=== PATIENT | female | born 1980 | race African-American/Black ===

== ENCOUNTER 2016-12-13 07:35 | Inpatient (IN) | payer MEDICAID ==
[2016-12-13] MEDS ORDERED: Acetaminophen 500 MG TAB ONE (07:59)
--- NOTE | 2016-12-13 08:03 | ED Physician Chart ---
Chief Complaint/HPI - Patient Information Date Seen:: 12/13/16 Time Seen:: 07:40 Chief Complaint:: leg pain History of Present Illness:: Patient has had cellulites both legs for 1 1/2 years. Pain has increased for the last 3 days. Was in [facility] in [place] 2 days ago where a fever was recorded. Allergies:: Allergies Allergy/AdvReac Type Severity Reaction Status Date / Time No Known Allergies Allergy Verified 12/13/16 07:56 Vitals:: Vital Signs - 8 hr 12/13/16 07:51 Temp 97.7 F HR 108 RR 16 BP 134/74 O2 Sat % 100 Historian:: Patient Review:: Nurse's Note Reviewed Review of Systems - Review of Systems General/Constitutional: Fever Skin: Skin lesions Head: No headache Eyes: No loss of vision ENT: No earache Neck: No neck pain Cardio Vascular: No chest pain Pulmonary: No SOB, No cough GI: No nausea, No vomiting, No diarrhea G/U: No dysuria Musculoskeletal: Muscle pain Endocrine: No polyuria, No polydipsia Psychiatric: No prior psych history Allergic/Immuno: No urticaria Neurological: No syncope, No focal symptoms Past Medical History - Past Medical History Past Medical History: DM, Other ("borderline diabetes") Family History: Diabetes Melitus Social History: Smoker, No Alcohol, Other (smokes cigarets about two days a week ) Surgical History: Psychiatricy History: None Medication: None Family Medical History - Family Member Mother Ethnicity: Non- Living Status: Unknown Physical Exam - Physical Examination General/Constitutional: Well-developed, well-nourished, Alert, No distress Head: Atraumatic Eyes: Lids, conjuctiva normal Other Skin comments:: swelling and 2/4 pitting edema lower legs; 7x3 cm superficial ulcer medial left lower leg just proximal to ankle ENMT: External ears, nose nl Neck: No nuchal rigidity Respiratory: Nl effort/Exclusion, Clear to Auscultation Cardio Vascular: RRR, No murmur, gallop, rubs GI: No tenderness/rebounding/guarding, No organomegaly, No hernia : No CVA tenderness Extremities: No tenderness or effusion Neuro/Psych: Alert/oriented, No focal deficits Misc: Normal back ED Septic Shock - . Is Septic Shock (SBP<90, OR Lactate>4 mmol\\L) present?: No - <6hrs of presentation: Vital Signs: Vital Signs - 8 hr 12/13/16 07:51 Temp 97.7 F HR 108 RR 16 BP 134/74 O2 Sat % 100 Reassessment (Disposition) - Reassessment Reassessment Condition:: Unchanged - Diagnosis Diagnosis:: cellulitis both lower legs; abscess left lower leg. - Patient Disposition Admitted to:: Med/Surg Spoke to:: Tj Mchugh Admitting Medical Physician:: Tj Mchugh Condition at Disposition:: Stable, Unchanged
[2016-12-13 08:41] LABS: % BASOPHILS 0.8 % (0.0-2.0); % EOSINOPHILS 2.1 % (0.0-5.0); % LYMPHOCYTES 38.6 % (20.0-50.0); % MONOCYTES 9.8 % (2.0-10.0); % NEUTROPHILS 48.7 % (40.0-80.0); HEMATOCRIT 32.6 % (35.0-45.0); HEMOGLOBIN 10.5 gm/dL (11.7-15.5); MEAN CELL VOLUME 86.7 fl (81-100); MEAN CORPUSCULAR HGB CONC 32.3 pg (28.0-36.0); MEAN PLATELET VOLUME 7.5 fl; PLATELET COUNT 272 Th/cmm (150-400); RED BLOOD COUNT 3.76 Mil/cmm (3.80-5.10); RED CELL DISTRIBUTION WIDTH 19.3 % (11.5-20.0)
[2016-12-13 09:16] LABS: ALB/GLOB RATIO 0.7 (1.0-1.8); ALKALINE PHOSPHATASE 79 U/L (34-104); ANION GAP 9.3 (7.0-16.0); BILIRUBIN,TOTAL 0.4 mg/dL (0.3-1.0); BUN - UREA NITROGEN 15 mg/dL (7-25); CALCIUM SERUM 9.4 mg/dL (8.6-10.3); CARBON DIOXIDE 27.1 mEq/L (21.0-31.0); CHLORIDE 101 mEq/L (98-107); CREATININE - SERUM 0.6 mg/dL (0.6-1.2); GLUCOSE 91 mg/dL (70-105); POTASSIUM SERUM 4.4 mEq/L (3.5-5.1); SGOT 34 U/L (13-39); SGPT/ALT 23 U/L (7-52); SODIUM SERUM 133 mEq/L (136-145)
[2016-12-13 10:21] LABS: URINE BILIRUBIN NEGATIVE (NEGATIVE); URINE BLOOD NEGATIVE (NEGATIVE); URINE COLOR YELLOW; URINE GLUCOSE (UA) NEGATIVE (NEGATIVE); URINE KETONE NEGATIVE (NEGATIVE); URINE PROTEIN 30 mg/dL (NEGATIVE)
[2016-12-13 10:22] LABS: URINE UROBILINOGEN 0.2 E.U./dL (0.2 - 1.0)
[2016-12-13 10:25] LABS: URINE BACTERIA FEW /hpf (NONE SEEN); URINE EPITHELIAL CELLS MODERATE /lpf (FEW); URINE RBC 0-2 /hpf (0-5)
--- NOTE | 2016-12-13 10:56 | Diagnostic Imaging Report ---
Left tibia fibula 2 views Indication: Pain, rule out Osteomyelitis Comparison: none Findings: No evidence of an acute fracture. Generalized soft tissue prominence is noted. No osseous erosions identified. Moderate distal Achilles and plantar calcaneal spurs are noted. Impression: No x-ray evidence of osteomyelitis, however, if there is continued clinical concern for osteomyelitis, MRI or nuclear bone scan may be obtained for further assessment Generalized soft tissue prominence. Please correlate clinically for possible cellulitis. In the setting of trauma, if clinical symptoms persist and there is continued concern for an occult fracture, follow up exams in 5-7 days is suggested.
[2016-12-13] MEDS ORDERED: Hydrocodone/APAP 5mg/325mg Tab PO PRN (12:34)
--- NOTE | 2016-12-13 13:05 | Consultation ---
Consult Note - Consult Note Service Date: 12/13/16 Referring Physician: Tj Mchugh Consult Note: PHYSICIAN Consultation Note: Date of Admission: 12/13/16 Purpose of Consultation: cellulitis of leg, not improving for last 2 weeks. Chief Complaint: Leg swelling and pain. History of Present Illness: Patient ALEENA DICKEY was admitted to [facility] Medical[facility] with CELLULITIS OF BILATERAL EXTREMITIES. Patient is 36 Y female with history of lymphedema of both legs for more than 3 years, presented to the ED for swelling leg pains and worsening of the swelling for last two weeks with non healing wound in her left leg. She hit the leg and developed her left leg ulcer. she went to the the [facility] last week and had 100 degree F recorded in the ED (as per the patient). Currently, she is afebrile. On initial evaluation, her temperature was 97.7 degree F and WBC Count was 6,000. As she was found to have cellulitis, DENICE bhatia was called for antibiotic management. PMH: Lymphedema, borderline DM2. Allergies Allergy/AdvReac Type Severity Reaction Status Date / Time No Known Allergies Allergy Verified 12/13/16 07:56 Vital Signs Temp 99.3 F 12/13/16 12:06 Pulse 95 12/13/16 12:06 Resp 18 12/13/16 12:06 BP 175/77 12/13/16 12:06 Pulse Ox 99 12/13/16 12:06 Current Medications Generic Name Dose Route Start Last Admin Trade Name Freq PRN Reason Stop Dose Admin Acetaminophen 650 mg 12/13/16 12:47 Tylenol PO 02/11/17 12:46 Q4HR PRN Pain or Fever >101 Acetaminophen/Hydrocodone Bitart 1 tab 12/13/16 12:34 Ringold 5mg/325mg PO 02/11/17 12:33 Q6H PRN Pain (Severe) Miscellaneous 1 ea 12/13/16 12:45 Vancomycin Iv Per Pharmacy [facility] 02/11/17 12:44 PRN ZACKARY Ondansetron HCl 4 mg 12/13/16 12:35 Zofran Odt PO 02/11/17 12:34 Q6H PRN Nausea / Vomiting Review of Systems: A 12 point ROS was reviewed with the pertinent positive and negatives noted in the HPI. Physical Exam: General: No Acute Distress HEENT: Head is normocephalic, atraumatic on inspection. Oral cavity mois, pink tongue. Eyes: EOMI Bilaterally, PERRLA Bilaterally, Cardio: +S1/S2 Auscultated, RRR, no murmurs/rubs/gallops noted Respiratory: Clear to Auscultate Bilaterally Abdominal: Soft, Nondistended, Nontender to palpation x 4 quadrants Extremities: Swelling of the leg with mild redness and sloughing of the skin b/ l. there is two bleeding ulcer laterally. the legs, ankles and feet are very swollen and has sloughing of the skin. Neurological: Alert and Oriented x3, Cranial Nerves II-XII intact bilaterally, Gait Steady, No Focal Deficits noted. Assessment/Plan: 1. Cellulitis. 2. Borderline DM2. Recommendations: Will start vanco IV and follow up sepsis w/u. Wound care, may need moisturizer. Thank you, Dr Mchugh for involving me inctaking care of this patient. Signed, Matheus Gutierrez M.D. [id number]
--- NOTE | 2016-12-13 15:48 | Diagnostic Imaging Report ---
Bilateral lower extremity DVT study HISTORY: Pain COMPARISON: None Technique: Longitudinal and transverse sonographic images of the bilateral lower extremity veins were obtained with doppler analysis. FINDINGS: Exam is limited due to body habitus. The bilateral peroneal veins are not visualized. There is patency of the bilateral common femoral, superficial femoral, popliteal and posterior tibial veins. Compressibility, augmentation and phasicity demonstrated with no evidence of thrombus formation. IMPRESSION: Nonvisualization of the bilateral peroneal veins. Otherwise no evidence of DVT within the bilateral lower extremity venous system.
--- NOTE | 2016-12-13 15:51 | Diagnostic Imaging Report ---
Bilateral lower extremity arterial study HISTORY: Peripheral vascular disease COMPARISON: None Technique: Longitudinal and transverse sonographic images of the bilateral lower extremity arteries were obtained with doppler analysis. FINDINGS: Exam of the right side demonstrates generalized atherosclerotic vascular disease with primarily biphasic and monophasic flow noted. Increased velocities are seen throughout the right lower extremity greatest along the right superficial femoral artery at the mid aspect and 181 cm/second. Exam of the left side demonstrates generalized atherosclerotic vascular disease with biphasic and monophasic waveforms and diffuse increased velocity greatest of the left common femoral artery at 209 cm/second. Right DAMIEN is 1 Left DAMIEN is 1.2 IMPRESSION: Generalized atherosclerosis with diffuse loss of the triphasic flow bilaterally. Increased velocities are also noted which may be related to vessel narrowing. Clinical correlation is recommended. No sonographic evidence of occlusion. If indicated follow-up CT angiography of the lower extremities may be obtained.
--- NOTE | 2016-12-13 16:13 | Admit Criteria Form ---
Admit Criteria Forms - Admit Criteria Diagnosis: CELLULITIS Clinical Indications for Admission to Inpatient Care (Place 'X' for any and all applicable criteria): Admission is indicated for ANY ONE of the following(1)(2)(3)(4)(5): [ ]I. Limb-threatening infection [ ]II. High-risk comorbid condition as indicated by ANY ONE of the following: [ ]a) Uncontrolled diabetes (eg, HbA1c greater than 10% (0.1)) [ ]b) Cirrhosis [ ]c) Neutropenia [ ]d) Asplenia [ ]e) Immunosuppression [ ]f) Symptomatic heart failure [ ]III. Failure of outpatient therapy as indicated by ALL of the following: [ ]a) Progression or no improvement after adequate trial (minimum of 48 hours, with longer period for stable lower extremity infection) [ ]b) Adequate antibiotic regimen as indicated by use of ANY ONE of the following: [ ]i) First-generation cephalosporin (e.g., cephalexin) [ ]ii) Antistaphylococcal penicillin (e.g., dicloxacillin) [ ]iii) Penicillin-allergic patient regimen (clindamycin, extended-spectrum fluoroquinolone, or doxycycline) [ ]iv) Resistant organism (eg, methicillin-resistant Staphylococcus aureus) regimen (6) [ ]c) Outpatient intravenous therapy regimen is not appropriate due to ANY ONE of the following. (7)(8)(9)(10): [ ]i) It was tried and was not successful (eg, progression of infection). [ ]ii) It is not available or cannot be arranged in a clinically appropriate time frame (e.g., the next day). [ ]iii) Clinical presentation (eg, acuity of infection, rapidity of progression, confirmed or suspected bacteremia) is judged to require ALL of the following: [ ]1) Immediate initiation of intravenous therapy ( eg, cannot wait for next day) [ ]2) Intensity of patient monitoring and observation (eg, vital sign measurement, checks for infection progression) that cannot be provided at other than inpatient level of care [ ]IV. Mental status changes [ ]V. Bacteremia [ ]. Hemodynamic instability [ ]VII. Suspected necrotizing soft tissue infection (e.g., gas in tissue)(11)( 12) [ ]VIII. Orbital infection (13)(14) [ ]IX. Associated surgical procedure (e.g., abscess drainage, debridement) not amenable to outpatient, emergency department, or observation care [ ]X. Cutaneous gangrene [ ]XI. High fever (temperature greater than 39.5 degrees C (103.1 degrees F) (oral)) not responsive to outpatient, emergency department, or observation care therapy [ X]XIII. Inpatient admission required rather than observation care (Also use Cellulitis: Observation Care as appropriate) because of ANY ONE of the following : [ ]a) Periorbital or perineal infection that is severe or worsening [ ]b) Severe pain requiring acute inpatient management [ ]c) IV fluid to replace significant ongoing (e.g., for over 24 hours) losses (greater than 3L/m2 per day) [ ]d) Compartment syndrome monitoring (17) [ ]e) Strict or protective (eg, laminar flow) isolation [ ]f) Urgent debridement or skin grafting [ ]g) Bone or joint debridement [ ]h) Immediate inpatient surgery [ X]i) Other condition, treatment or monitoring requiring inpatient admission Extended stay beyond goal length of stay may be needed for (1)(18): [ ]a) Necrotizing soft tissue infection or fasciitis [ ]b) Gram-negative infection [ ]c) Methicillin-resistant Staphylococcal aureus (MRSA) infection [ ]d) Peripheral venous insufficiency with cellulitis [ ]e) Extensive edema [ ]f) Sepsis or continued Hemodynamic instability [ ]g) Continued high fever or mental status change [ ]h) Bacteremia [ ]i) Active serious comorbid conditions ( eg, heart failure, renal insufficiency) The original [facility] Versus content created by [email or web address] [employer] has been revised. The portions of the content which have been revised are identified through the use of italic text or in bold, and [facility] has neither reviewed nor approved the modified material. All other unmodified content is copyright [facility] Please see references footnoted in the original [facility] [employer] [facility] edition 2016 Admit Criteria Met?: Yes
[2016-12-13] MEDS: Morphine Sulfate 2 mg/mL 1mL Syr IVP PRN ×2 (18:08→23:48)
[2016-12-13] MEDS: Vancomycin HCl 1.5 GM in Sodium Chloride 0.9% 500 ML IV SCH ×2 (18:13→22:49)
--- NOTE | 2016-12-13 22:24 | History & Physical ---
CHIEF COMPLAINT: Bilateral leg swelling, redness and open wound. HISTORY OF PRESENT ILLNESS: This is a 36-year-old female with underlying history of obesity, borderline diabetes, was evaluated in the Emergency Room at [facility] for bilateral leg pain, swelling and open wound. The patient was diagnosed with bilateral lower extremity cellulitis and was admitted for evaluation and treatment. The patient said that her symptoms has been going on for the past several days. She went to [facility] and was prescribed oral antibiotics, but the antibiotic did not help and her symptoms got worse. The patient said that she does not have any regular primary care physician. Normally, when she has any medical problems, she goes to the Emergency Room. Denies any complaints or concerns. PAST MEDICAL HISTORY: Borderline diabetes, otherwise denies. PAST SURGICAL HISTORY: C-sections in the past. FAMILY HISTORY: Noncontributory. SOCIAL HISTORY: Lives at home. Denies any alcohol or street drug use, positive for daily cigarette smoking. REVIEW OF SYSTEMS: Denies any fever, no chills, no nausea, no vomiting, no abdominal pain, no headache, no trouble with vision or speech. Denies any chest pain. No shortness of breath. No dizziness. No palpitations. Denies any urinary symptoms. Complaints of bilateral lower extremity pain. PHYSICAL EXAMINATION: VITAL SIGNS: Temperature 98.1, pulse 112, respiration 18, blood pressure is 124/70, Pain 7/10. GENERAL APPEARANCE: The patient does not seem to be in distress. CARDIOVASCULAR: S1, S2 normal. LUNGS: CTA bilaterally. ABDOMEN: Soft, nontender. NEUROLOGIC: The patient is awake. Moves all, no focal deficits noted. EXTREMITIES: Bilaterally legs +2 pitting edema noted, open wound and slough noted. Bilateral leg swelling and redness noted. LABORATORY DATA: WBC is 6.0, hemoglobin 10.5, hematocrit 32.6, platelets 270. Sodium 133, potassium 4.4, BUN 15, creatinine 0.6, ALT 23, globulin 5.1. Bilateral lower extremity Doppler negative for any DVT. X ray leg negative for acute osteomyelitis. ASSESSMENT: 1. Bilateral lower extremity cellulitis. 2. Borderline diabetes. 3. Morbid obesity. PLAN: The patient admitted to Med/Surg floor, started on IV vancomycin. Wound care team was consulted, ID was consulted. The patient was initially given [place] for pain control, but patient reported [place] is not helping her pain. [place] was discontinued and morphine was started. We will follow up on the further ID recommendations. Patient's condition and plan discussed with the staff. JOB# [id number] MTDD
[2016-12-14] MEDS: Morphine Sulfate 2 mg/mL 1mL Syr IVP PRN ×4 (05:50→22:36)
[2016-12-14] MEDS: Vancomycin HCl 1.5 GM in Sodium Chloride 0.9% 500 ML IV SCH (07:06)
[2016-12-14] MEDS: Therahoney Gel 42.5gm Tube TP SCH (10:49)
--- NOTE | 2016-12-14 11:52 | Diagnostic Imaging Report ---
Portable chest x-ray HISTORY: Shortness of breath, vascular catheter placement The heart size is normal. No focal pulmonary processes. No hilar or mediastinal abnormalities. A right-sided vascular catheter tip is in the region of the superior vena cava. IMPRESSION: 1. No acute focal pulmonary processes 2. Vascular catheter placement as noted above
[2016-12-14] MEDS ORDERED: Pneumococcal Vaccine 0.5 mL Vial IM ONE (12:00)
[2016-12-14] MEDS ORDERED: Influenza Vaccine 0.5 mL Syr IM ONE (12:00)
--- NOTE | 2016-12-14 12:12 | Infectious Disease Prog Note ---
Infectious Disease Subjective - Review of Systems Service Date: 12/14/16 Subjective: No new change, no fever. Infectious Disease Objective - Results Result Diagrams: 12/13/16 08:30 12/13/16 08:30 Recent Labs: Laboratory Last Values WBC 6.0 Th/cmm (4.8-10.8) 12/13/16 08:30 RBC 3.76 Mil/cmm (3.80-5.10) L 12/13/16 08:30 Hgb 10.5 gm/dL (11.7-15.5) L 12/13/16 08:30 Hct 32.6 % (35.0-45.0) L 12/13/16 08:30 MCV 86.7 fl (81-100) 12/13/16 08:30 MCH 28.0 pg (27.0-31.0) 12/13/16 08:30 MCHC Differential 32.3 pg (28.0-36.0) 12/13/16 08:30 RDW 19.3 % (11.5-20.0) 12/13/16 08:30 Plt Count 272 Th/cmm (150-400) 12/13/16 08:30 MPV 7.5 fl 12/13/16 08:30 Neutrophils % 48.7 % (40.0-80.0) 12/13/16 08:30 Lymphocytes % 38.6 % (20.0-50.0) 12/13/16 08:30 Monocytes % 9.8 % (2.0-10.0) 12/13/16 08:30 Eosinophils % 2.1 % (0.0-5.0) 12/13/16 08:30 Basophils % 0.8 % (0.0-2.0) 12/13/16 08:30 Sodium 133 mEq/L (136-145) L 12/13/16 08:30 Potassium 4.4 mEq/L (3.5-5.1) 12/13/16 08:30 Chloride 101 mEq/L (98-107) 12/13/16 08:30 Carbon Dioxide 27.1 mEq/L (21.0-31.0) 12/13/16 08:30 Anion Gap 9.3 (7.0-16.0) 12/13/16 08:30 BUN 15 mg/dL (7-25) 12/13/16 08:30 Creatinine 0.6 mg/dL (0.6-1.2) 12/13/16 08:30 Est GFR ( Amer) > 60.0 ml/min (>90) 12/13/16 08:30 Est GFR (Non-Af Amer) > 60.0 ml/min 12/13/16 08:30 BUN/Creatinine Ratio 25.0 12/13/16 08:30 Glucose 91 mg/dL (70-105) 12/13/16 08:30 Calcium 9.4 mg/dL (8.6-10.3) 12/13/16 08:30 Total Bilirubin 0.4 mg/dL (0.3-1.0) 12/13/16 08:30 AST 34 U/L (13-39) 12/13/16 08:30 ALT 23 U/L (7-52) 12/13/16 08:30 Alkaline Phosphatase 79 U/L (34-104) 12/13/16 08:30 Total Protein 8.5 gm/dL (6.0-8.3) H 12/13/16 08:30 Albumin 3.4 gm/dL (3.7-5.3) L 12/13/16 08:30 Globulin 5.1 gm/dL 12/13/16 08:30 Albumin/Globulin Ratio 0.7 (1.0-1.8) L 12/13/16 08:30 Urine Source MIDSTREAM 12/13/16 10:00 Urine Color YELLOW 12/13/16 10:00 Urine Clarity SL. CLOUDY (CLEAR) 12/13/16 10:00 Urine pH 6.0 12/13/16 10:00 Ur Specific [place] (1.005-1.030) 12/13/16 10:00 Urine Protein 30 mg/dL (NEGATIVE) H 12/13/16 10:00 Urine Glucose (UA) NEGATIVE mg/dL (NEGATIVE) 12/13/16 10:00 Urine Ketones NEGATIVE mg/dL (NEGATIVE) 12/13/16 10:00 Urine Blood NEGATIVE (NEGATIVE) 12/13/16 10:00 Urine Nitrate NEGATIVE (NEGATIVE) 12/13/16 10:00 Urine Bilirubin NEGATIVE (NEGATIVE) 12/13/16 10:00 Urine Urobilinogen 0.2 E.U./dL (0.2 - 1.0) 12/13/16 10:00 Ur Leukocyte Esterase SMALL (NEGATIVE) H 12/13/16 10:00 Urine RBC 0-2 /hpf (0-5) 12/13/16 10:00 Urine WBC 10-25 /hpf (0-5) H 12/13/16 10:00 Ur Epithelial Cells MODERATE /lpf (FEW) 12/13/16 10:00 Urine Bacteria FEW /hpf (NONE SEEN) 12/13/16 10:00 Urine Test NEGATIVE 12/13/16 10:00 Vancomycin Trough 12.9 ug/mL (10-20) 12/14/16 05:30 - Physical Exam Vitals and I&O: Vital Signs Temp 98.7 F 12/14/16 08:00 Pulse 94 12/14/16 08:00 Resp 19 12/14/16 08:00 BP 124/70 12/14/16 08:00 Pulse Ox 99 12/14/16 08:00 Intake & Output 12/13/16 12/14/16 12/14/16 18:59 06:59 18:59 Intake Total 800 1420 Balance 800 1420 Intake: Intake, IV Amount 1000 Vancomycin HCl 1.5 gm In 1000 Sodium Chloride 0.9% 500 ml @ 250 mls/hr IV Q8H [facility] Rx#:[id number] Oral 800 420 Other: # Voids 1 1 # Bowel Movements 0 0 Active Medications: Current Medications Acetaminophen (Tylenol) 650 mg PO Q4HR PRN PRN Reason: Pain or Fever >101 Stop: 02/11/17 12:46 Vancomycin HCl 1.5 gm/ Sodium (Chloride) 250 mls @ 125 mls/hr IV Q8H [facility] Stop: 02/12/17 15:59 Miscellaneous (Vancomycin Iv Per Pharmacy) 1 ea [facility] PRN ZACKARY Stop: 02/11/17 12:44 Morphine Sulfate (Morphine) 2 mg IVP Q4HR PRN PRN Reason: Pain (Severe) Stop: 02/11/17 17:28 Last Admin: 12/14/16 10:48 Dose: 2 mg Ondansetron HCl (Zofran Odt) 4 mg PO Q6H PRN PRN Reason: Nausea / Vomiting Stop: 02/11/17 12:34 Wound Care/Dressing Products ([place]rah[place]) 1 appl TP DAILY [facility] Stop: 02/11/17 18:14 Last Admin: 12/14/16 10:49 Dose: 1 appl General: no acute distress, well developed, well nourished HEENT: atraumatic, normocephalic, PERRLA, EOMI Neck: supple Cardiovascular: S1S2, regular Lungs: clear to auscultation bilaterally, clear to percussion Abdomen: soft, no tender, no distended, no mass Extremities: other (swelling of the legs with wound on the right. Her leg skinis very dry and has sloughig.), no cyanosis, no clubbing Neurological: awake, alert, oriented Infectious Disease Assmt/Plan - Problem List Patient Problems: All Active Problems LEG SWELLING (Acute ~12/13/16) - Assessment Assessment: Cellulitis of the legs. right leg wound. Lymphedema. PAD. - Plan Plan: Continue vanco IV. wound care. Vascular surgery consult.
--- NOTE | 2016-12-14 22:28 | General Progress Note ---
Subjective - Review of Systems Service Date: 12/14/16 Subjective: patient doing better afebrile no new concern Objective - Results Result Diagrams: 12/13/16 08:30 12/13/16 08:30 Recent Labs: Laboratory Last Values WBC 6.0 Th/cmm (4.8-10.8) 12/13/16 08:30 RBC 3.76 Mil/cmm (3.80-5.10) L 12/13/16 08:30 Hgb 10.5 gm/dL (11.7-15.5) L 12/13/16 08:30 Hct 32.6 % (35.0-45.0) L 12/13/16 08:30 MCV 86.7 fl (81-100) 12/13/16 08:30 MCH 28.0 pg (27.0-31.0) 12/13/16 08:30 MCHC Differential 32.3 pg (28.0-36.0) 12/13/16 08:30 RDW 19.3 % (11.5-20.0) 12/13/16 08:30 Plt Count 272 Th/cmm (150-400) 12/13/16 08:30 MPV 7.5 fl 12/13/16 08:30 Neutrophils % 48.7 % (40.0-80.0) 12/13/16 08:30 Lymphocytes % 38.6 % (20.0-50.0) 12/13/16 08:30 Monocytes % 9.8 % (2.0-10.0) 12/13/16 08:30 Eosinophils % 2.1 % (0.0-5.0) 12/13/16 08:30 Basophils % 0.8 % (0.0-2.0) 12/13/16 08:30 Sodium 133 mEq/L (136-145) L 12/13/16 08:30 Potassium 4.4 mEq/L (3.5-5.1) 12/13/16 08:30 Chloride 101 mEq/L (98-107) 12/13/16 08:30 Carbon Dioxide 27.1 mEq/L (21.0-31.0) 12/13/16 08:30 Anion Gap 9.3 (7.0-16.0) 12/13/16 08:30 BUN 15 mg/dL (7-25) 12/13/16 08:30 Creatinine 0.6 mg/dL (0.6-1.2) 12/13/16 08:30 Est GFR ( Amer) > 60.0 ml/min (>90) 12/13/16 08:30 Est GFR (Non-Af Amer) > 60.0 ml/min 12/13/16 08:30 BUN/Creatinine Ratio 25.0 12/13/16 08:30 Glucose 91 mg/dL (70-105) 12/13/16 08:30 Calcium 9.4 mg/dL (8.6-10.3) 12/13/16 08:30 Total Bilirubin 0.4 mg/dL (0.3-1.0) 12/13/16 08:30 AST 34 U/L (13-39) 12/13/16 08:30 ALT 23 U/L (7-52) 12/13/16 08:30 Alkaline Phosphatase 79 U/L (34-104) 12/13/16 08:30 Total Protein 8.5 gm/dL (6.0-8.3) H 12/13/16 08:30 Albumin 3.4 gm/dL (3.7-5.3) L 12/13/16 08:30 Globulin 5.1 gm/dL 12/13/16 08:30 Albumin/Globulin Ratio 0.7 (1.0-1.8) L 12/13/16 08:30 Urine Source MIDSTREAM 12/13/16 10:00 Urine Color YELLOW 12/13/16 10:00 Urine Clarity SL. CLOUDY (CLEAR) 12/13/16 10:00 Urine pH 6.0 12/13/16 10:00 Ur Specific [place] (1.005-1.030) 12/13/16 10:00 Urine Protein 30 mg/dL (NEGATIVE) H 12/13/16 10:00 Urine Glucose (UA) NEGATIVE mg/dL (NEGATIVE) 12/13/16 10:00 Urine Ketones NEGATIVE mg/dL (NEGATIVE) 12/13/16 10:00 Urine Blood NEGATIVE (NEGATIVE) 12/13/16 10:00 Urine Nitrate NEGATIVE (NEGATIVE) 12/13/16 10:00 Urine Bilirubin NEGATIVE (NEGATIVE) 12/13/16 10:00 Urine Urobilinogen 0.2 E.U./dL (0.2 - 1.0) 12/13/16 10:00 Ur Leukocyte Esterase SMALL (NEGATIVE) H 12/13/16 10:00 Urine RBC 0-2 /hpf (0-5) 12/13/16 10:00 Urine WBC 10-25 /hpf (0-5) H 12/13/16 10:00 Ur Epithelial Cells MODERATE /lpf (FEW) 12/13/16 10:00 Urine Bacteria FEW /hpf (NONE SEEN) 12/13/16 10:00 Urine Test NEGATIVE 12/13/16 10:00 Vancomycin Trough 12.9 ug/mL (10-20) 12/14/16 05:30 - Physical Exam Vitals and I&O: Vital Signs Temp 98.9 F 12/14/16 20:00 Pulse 103 12/14/16 20:00 Resp 18 12/14/16 20:00 BP 121/54 12/14/16 20:00 Pulse Ox 95 12/14/16 20:00 Intake & Output 12/14/16 12/14/16 12/15/16 06:59 18:59 06:59 Intake Total 1420 Balance 1420 Intake: Intake, IV Amount 1000 Vancomycin HCl 1.5 gm In 1000 Sodium Chloride 0.9% 500 ml @ 250 mls/hr IV Q8H [facility] Rx#:[id number] Oral 420 Other: # Voids 1 # Bowel Movements 0 Active Medications: Current Medications Acetaminophen (Tylenol) 650 mg PO Q4HR PRN PRN Reason: Pain or Fever >101 Stop: 02/11/17 12:46 Vancomycin HCl 1.5 gm/ Sodium (Chloride) 250 mls @ 125 mls/hr IV Q8H [facility] Stop: 02/12/17 15:59 Last Admin: 12/14/16 17:11 Dose: 125 mls/hr Miscellaneous (Vancomycin Iv Per Pharmacy) 1 ea [facility] PRN [facility] Stop: 02/11/17 12:44 Morphine Sulfate (Morphine) 2 mg IVP Q4HR PRN PRN Reason: Pain (Severe) Stop: 02/11/17 17:28 Last Admin: 12/14/16 16:27 Dose: 2 mg Ondansetron HCl (Zofran Odt) 4 mg PO Q6H PRN PRN Reason: Nausea / Vomiting Stop: 02/11/17 12:34 Wound Care/Dressing Products (Therahoney) 1 appl TP DAILY [facility] Stop: 02/11/17 18:14 Last Admin: 12/14/16 10:49 Dose: 1 appl Extremities: Edema Assessment/Plan - Problem List Patient Problems: All Active Problems LEG SWELLING (Acute ~12/13/16) - Assessment Assessment: Bilateral leg cellulitis Obesity - Plan Plan: Continue current treatment Follow up labs in am pain control
[2016-12-15] MEDS: Morphine Sulfate 2 mg/mL 1mL Syr IVP PRN ×2 (04:04→20:49)
[2016-12-15] MEDS: Therahoney Gel 42.5gm Tube TP SCH (09:31)
--- NOTE | 2016-12-15 10:02 | General Progress Note ---
Subjective - Review of Systems Service Date: 12/15/16 Events since last encounter: venous study - no DVT arterial study - doubt PVD, likely due to lymphema compression of arteries elevation of extremities, compression stockings (?) local wound care Objective - Results Result Diagrams: 12/13/16 08:30 12/13/16 08:30 Recent Labs: Laboratory Last Values WBC 6.0 Th/cmm (4.8-10.8) 12/13/16 08:30 RBC 3.76 Mil/cmm (3.80-5.10) L 12/13/16 08:30 Hgb 10.5 gm/dL (11.7-15.5) L 12/13/16 08:30 Hct 32.6 % (35.0-45.0) L 12/13/16 08:30 MCV 86.7 fl (81-100) 12/13/16 08:30 MCH 28.0 pg (27.0-31.0) 12/13/16 08:30 MCHC Differential 32.3 pg (28.0-36.0) 12/13/16 08:30 RDW 19.3 % (11.5-20.0) 12/13/16 08:30 Plt Count 272 Th/cmm (150-400) 12/13/16 08:30 MPV 7.5 fl 12/13/16 08:30 Neutrophils % 48.7 % (40.0-80.0) 12/13/16 08:30 Lymphocytes % 38.6 % (20.0-50.0) 12/13/16 08:30 Monocytes % 9.8 % (2.0-10.0) 12/13/16 08:30 Eosinophils % 2.1 % (0.0-5.0) 12/13/16 08:30 Basophils % 0.8 % (0.0-2.0) 12/13/16 08:30 Sodium 133 mEq/L (136-145) L 12/13/16 08:30 Potassium 4.4 mEq/L (3.5-5.1) 12/13/16 08:30 Chloride 101 mEq/L (98-107) 12/13/16 08:30 Carbon Dioxide 27.1 mEq/L (21.0-31.0) 12/13/16 08:30 Anion Gap 9.3 (7.0-16.0) 12/13/16 08:30 BUN 15 mg/dL (7-25) 12/13/16 08:30 Creatinine 0.6 mg/dL (0.6-1.2) 12/13/16 08:30 Est GFR ( Amer) > 60.0 ml/min (>90) 12/13/16 08:30 Est GFR (Non-Af Amer) > 60.0 ml/min 12/13/16 08:30 BUN/Creatinine Ratio 25.0 12/13/16 08:30 Glucose 91 mg/dL (70-105) 12/13/16 08:30 Calcium 9.4 mg/dL (8.6-10.3) 12/13/16 08:30 Total Bilirubin 0.4 mg/dL (0.3-1.0) 12/13/16 08:30 AST 34 U/L (13-39) 12/13/16 08:30 ALT 23 U/L (7-52) 12/13/16 08:30 Alkaline Phosphatase 79 U/L (34-104) 12/13/16 08:30 Total Protein 8.5 gm/dL (6.0-8.3) H 12/13/16 08:30 Albumin 3.4 gm/dL (3.7-5.3) L 12/13/16 08:30 Globulin 5.1 gm/dL 12/13/16 08:30 Albumin/Globulin Ratio 0.7 (1.0-1.8) L 12/13/16 08:30 Urine Source MIDSTREAM 12/13/16 10:00 Urine Color YELLOW 12/13/16 10:00 Urine Clarity SL. CLOUDY (CLEAR) 12/13/16 10:00 Urine pH 6.0 12/13/16 10:00 Ur Specific [place] [employer] (1.005-1.030) 12/13/16 10:00 Urine Protein 30 mg/dL (NEGATIVE) H 12/13/16 10:00 Urine Glucose (UA) NEGATIVE mg/dL (NEGATIVE) 12/13/16 10:00 Urine Ketones NEGATIVE mg/dL (NEGATIVE) 12/13/16 10:00 Urine Blood NEGATIVE (NEGATIVE) 12/13/16 10:00 Urine Nitrate NEGATIVE (NEGATIVE) 12/13/16 10:00 Urine Bilirubin NEGATIVE (NEGATIVE) 12/13/16 10:00 Urine Urobilinogen 0.2 E.U./dL (0.2 - 1.0) 12/13/16 10:00 Ur Leukocyte Esterase SMALL (NEGATIVE) H 12/13/16 10:00 Urine RBC 0-2 /hpf (0-5) 12/13/16 10:00 Urine WBC 10-25 /hpf (0-5) H 12/13/16 10:00 Ur Epithelial Cells MODERATE /lpf (FEW) 12/13/16 10:00 Urine Bacteria FEW /hpf (NONE SEEN) 12/13/16 10:00 Urine Test NEGATIVE 12/13/16 10:00 Vancomycin Trough 12.9 ug/mL (10-20) 12/14/16 05:30 - Physical Exam Vitals and I&O: Vital Signs Temp 98.2 F 12/15/16 08:00 Pulse 89 12/15/16 08:00 Resp 18 12/15/16 08:00 BP 101/72 12/15/16 08:00 Pulse Ox 95 12/15/16 08:00 Intake & Output 12/14/16 12/15/16 12/15/16 18:59 06:59 18:59 Intake Total 1120 Balance 1120 Intake: Intake, IV Amount 500 Vancomycin HCl 1.5 gm In 500 Sodium Chloride 0.9% 250 ml @ 125 mls/hr IV Q8H [facility] Rx#:[id number] Oral 620 Other: # Voids 2 # Bowel Movements 0 Active Medications: Current Medications Acetaminophen (Tylenol) 650 mg PO Q4HR PRN PRN Reason: Pain or Fever >101 Stop: 02/11/17 12:46 Vancomycin HCl 1.5 gm/ Sodium (Chloride) 250 mls @ 125 mls/hr IV Q8HR@0000,0800 ,1600 [facility] Stop: 02/12/17 15:59 Miscellaneous (Vancomycin Iv Per Pharmacy) 1 ea [facility] PRN [facility] Stop: 02/11/17 12:44 Morphine Sulfate (Morphine) 2 mg IVP Q4HR PRN PRN Reason: Pain (Severe) Stop: 02/11/17 17:28 Last Admin: 12/15/16 04:04 Dose: 2 mg Ondansetron HCl (Zofran Odt) 4 mg PO Q6H PRN PRN Reason: Nausea / Vomiting Stop: 02/11/17 12:34 Wound Care/Dressing Products (Therahoney) 1 appl TP DAILY [facility] Stop: 02/11/17 18:14 Last Admin: 12/15/16 09:31 Dose: 1 appl Assessment/Plan - Problem List Patient Problems: All Active Problems LEG SWELLING (Acute ~12/13/16)
[2016-12-15 10:35] LABS: % BASOPHILS 0.8 % (0.0-2.0); % EOSINOPHILS 2.6 % (0.0-5.0); % LYMPHOCYTES 30.8 % (20.0-50.0); % MONOCYTES 9.4 % (2.0-10.0); % NEUTROPHILS 56.4 % (40.0-80.0); HEMATOCRIT 29.6 % (35.0-45.0); HEMOGLOBIN 9.9 gm/dL (11.7-15.5); MEAN CELL VOLUME 86.5 fl (81-100); MEAN CORPUSCULAR HEMOGLOBIN 28.8 pg (27.0-31.0); MEAN CORPUSCULAR HGB CONC 33.3 pg (28.0-36.0); MEAN PLATELET VOLUME 7.5 fl; NEUTROPHILE ABSOLUTE 3.3 Th/cmm (1.8-8.0); PLATELET COUNT 276 Th/cmm (150-400); RED BLOOD COUNT 3.42 Mil/cmm (3.80-5.10); RED CELL DISTRIBUTION WIDTH 19.5 % (11.5-20.0); WHITE BLOOD COUNT 5.9 Th/cmm (4.8-10.8)
[2016-12-15 11:57] LABS: BUN - UREA NITROGEN 8 mg/dL (7-25); BUN/CREATININE RATIO 11.4; CALCIUM SERUM 9.2 mg/dL (8.6-10.3); CARBON DIOXIDE 24.7 mEq/L (21.0-31.0); CHLORIDE 101 mEq/L (98-107); CREATININE - SERUM 0.7 mg/dL (0.6-1.2); GLUCOSE 124 mg/dL (70-105); POTASSIUM SERUM 3.7 mEq/L (3.5-5.1); SODIUM SERUM 135 mEq/L (136-145)
--- NOTE | 2016-12-15 13:29 | Consultation ---
REFERRING PHYSICIAN: Tj Mchugh M.D. REASON FOR CONSULTATION: Swelling both lower extremities. Thank you for referring this patient to me. HISTORY OF PRESENT ILLNESS: This is a 36-year-old female who claims that following a year ago, both lower extremities started swelling. Started developing some drainage in both legs on the right side about 3 days ago and on the left side about the same time. PAST MEDICAL HISTORY: Borderline diabetes, obesity, section in the past. LABORATORY STUDIES: On this admission, the WBC is normal, hemoglobin 10.5. Chemistry also within normal limits. She underwent an x-ray of the tibia and fibula and there is no evidence of osteomyelitis. The ultrasound of the lower extremity does not reveal any DVT. An arterial study was done and this shows generalized atherosclerosis with diffuse loss of triphasic flow bilaterally. PHYSICAL EXAMINATION: The patient appears to be well oriented. She is extremely obese. EXTREMITIES: The lower extremities are so swollen and with some pitting edema present, particularly in the lower extremities with brownie duration of the skin on the lateral aspect at the ankle and open sores, which or superficial on the lateral aspect on the left side. There appears to be normal temperature, however, and no evidence of positive Amos sign is noted. IMPRESSION: 1. Lymphedema, lower extremities. 2. No evidence of deep vein thrombosis. 3. Questionable arterial disease, more likely due to compression from the lymphedema, ____ atherosclerotic obstruction. RECOMMENDATION: I would recommend elevation of the extremities and local wound care of the superficial ulcerations. Antibiotic has been initiated. We will follow as needed. [facility]# [id number]
--- NOTE | 2016-12-15 13:50 | Infectious Disease Prog Note ---
Infectious Disease Subjective - Review of Systems Service Date: 12/15/16 Subjective: No new change, no fever. Infectious Disease Objective - Results Result Diagrams: 12/15/16 09:44 12/15/16 09:44 Recent Labs: Laboratory Last Values WBC 5.9 Th/cmm (4.8-10.8) 12/15/16 09:44 RBC 3.42 Mil/cmm (3.80-5.10) L 12/15/16 09:44 Hgb 9.9 gm/dL (11.7-15.5) L 12/15/16 09:44 Hct 29.6 % (35.0-45.0) L 12/15/16 09:44 MCV 86.5 fl (81-100) 12/15/16 09:44 MCH 28.8 pg (27.0-31.0) 12/15/16 09:44 MCHC Differential 33.3 pg (28.0-36.0) 12/15/16 09:44 RDW 19.5 % (11.5-20.0) 12/15/16 09:44 Plt Count 276 Th/cmm (150-400) 12/15/16 09:44 MPV 7.5 fl 12/15/16 09:44 Neutrophils % 56.4 % (40.0-80.0) 12/15/16 09:44 Lymphocytes % 30.8 % (20.0-50.0) 12/15/16 09:44 Monocytes % 9.4 % (2.0-10.0) 12/15/16 09:44 Eosinophils % 2.6 % (0.0-5.0) 12/15/16 09:44 Basophils % 0.8 % (0.0-2.0) 12/15/16 09:44 Sodium 135 mEq/L (136-145) L 12/15/16 09:44 Potassium 3.7 mEq/L (3.5-5.1) 12/15/16 09:44 Chloride 101 mEq/L (98-107) 12/15/16 09:44 Carbon Dioxide 24.7 mEq/L (21.0-31.0) 12/15/16 09:44 Anion Gap 13.0 (7.0-16.0) 12/15/16 09:44 BUN 8 mg/dL (7-25) 12/15/16 09:44 Creatinine 0.7 mg/dL (0.6-1.2) 12/15/16 09:44 Est GFR ( Amer) > 60.0 ml/min (>90) 12/15/16 09:44 Est GFR (Non-Af Amer) > 60.0 ml/min 12/15/16 09:44 BUN/Creatinine Ratio 11.4 12/15/16 09:44 Glucose 124 mg/dL (70-105) H 12/15/16 09:44 Calcium 9.2 mg/dL (8.6-10.3) 12/15/16 09:44 Total Bilirubin 0.4 mg/dL (0.3-1.0) 12/13/16 08:30 AST 34 U/L (13-39) 12/13/16 08:30 ALT 23 U/L (7-52) 12/13/16 08:30 Alkaline Phosphatase 79 U/L (34-104) 12/13/16 08:30 Total Protein 8.5 gm/dL (6.0-8.3) H 12/13/16 08:30 Albumin 3.4 gm/dL (3.7-5.3) L 12/13/16 08:30 Globulin 5.1 gm/dL 12/13/16 08:30 Albumin/Globulin Ratio 0.7 (1.0-1.8) L 12/13/16 08:30 Urine Source MIDSTREAM 12/13/16 10:00 Urine Color YELLOW 12/13/16 10:00 Urine Clarity SL. CLOUDY (CLEAR) 12/13/16 10:00 Urine pH 6.0 12/13/16 10:00 Ur Specific [place] (1.005-1.030) 12/13/16 10:00 Urine Protein 30 mg/dL (NEGATIVE) H 12/13/16 10:00 Urine Glucose (UA) NEGATIVE mg/dL (NEGATIVE) 12/13/16 10:00 Urine Ketones NEGATIVE mg/dL (NEGATIVE) 12/13/16 10:00 Urine Blood NEGATIVE (NEGATIVE) 12/13/16 10:00 Urine Nitrate NEGATIVE (NEGATIVE) 12/13/16 10:00 Urine Bilirubin NEGATIVE (NEGATIVE) 12/13/16 10:00 Urine Urobilinogen 0.2 E.U./dL (0.2 - 1.0) 12/13/16 10:00 Ur Leukocyte Esterase SMALL (NEGATIVE) H 12/13/16 10:00 Urine RBC 0-2 /hpf (0-5) 12/13/16 10:00 Urine WBC 10-25 /hpf (0-5) H 12/13/16 10:00 Ur Epithelial Cells MODERATE /lpf (FEW) 12/13/16 10:00 Urine Bacteria FEW /hpf (NONE SEEN) 12/13/16 10:00 Urine Test NEGATIVE 12/13/16 10:00 Vancomycin Trough 12.9 ug/mL (10-20) 12/14/16 05:30 - Physical Exam Vitals and I&O: Vital Signs Temp 97.5 F 12/15/16 12:00 Pulse 92 12/15/16 12:00 Resp 18 12/15/16 12:00 BP 125/75 12/15/16 12:00 Pulse Ox 98 12/15/16 12:00 Intake & Output 12/14/16 12/15/16 12/15/16 18:59 06:59 18:59 Intake Total 1120 Balance 1120 Intake: Intake, IV Amount 500 Vancomycin HCl 1.5 gm In 500 Sodium Chloride 0.9% 250 ml @ 125 mls/hr IV Q8H [facility] Rx#:[id number] Oral 620 Other: # Voids 2 # Bowel Movements 0 Active Medications: Current Medications Acetaminophen (Tylenol) 650 mg PO Q4HR PRN PRN Reason: Pain or Fever >101 Stop: 02/11/17 12:46 Vancomycin HCl 1.5 gm/ Sodium (Chloride) 250 mls @ 125 mls/hr IV Q8HR@0000,0800 ,1600 [facility] Stop: 02/12/17 15:59 Miscellaneous (Vancomycin Iv Per Pharmacy) 1 ea [facility] PRN [facility] Stop: 02/11/17 12:44 Morphine Sulfate (Morphine) 2 mg IVP Q4HR PRN PRN Reason: Pain (Severe) Stop: 02/11/17 17:28 Last Admin: 12/15/16 04:04 Dose: 2 mg Ondansetron HCl (Zofran Odt) 4 mg PO Q6H PRN PRN Reason: Nausea / Vomiting Stop: 02/11/17 12:34 Wound Care/Dressing Products (Therahoney) 1 appl TP DAILY [facility] Stop: 02/11/17 18:14 Last Admin: 12/15/16 09:31 Dose: 1 appl General: no acute distress, other (obese) HEENT: atraumatic, normocephalic, PERRLA, EOMI Neck: supple, no thyromegaly, no lymphadenopathy Cardiovascular: S1S2, regular Lungs: clear to auscultation bilaterally, clear to percussion Abdomen: soft, no tender, no distended, no catheter Extremities: other (swelling of her legs. Left leg wound.), no cyanosis, no clubbing Neurological: awake, alert, oriented Infectious Disease Assmt/Plan - Problem List Patient Problems: All Active Problems LEG SWELLING (Acute ~12/13/16) - Assessment Assessment: Cellulitis of the legs. right leg wound. Lymphedema. PAD. - Plan Plan: Continue vanco IV. wound care. Vascular surgery consult appreciated.
--- NOTE | 2016-12-15 17:46 | General Progress Note ---
Subjective - Review of Systems Service Date: 12/15/16 Subjective: patient doing better afebrile no new concern Objective - Results Result Diagrams: 12/15/16 09:44 12/15/16 09:44 Recent Labs: Laboratory Last Values WBC 5.9 Th/cmm (4.8-10.8) 12/15/16 09:44 RBC 3.42 Mil/cmm (3.80-5.10) L 12/15/16 09:44 Hgb 9.9 gm/dL (11.7-15.5) L 12/15/16 09:44 Hct 29.6 % (35.0-45.0) L 12/15/16 09:44 MCV 86.5 fl (81-100) 12/15/16 09:44 MCH 28.8 pg (27.0-31.0) 12/15/16 09:44 MCHC Differential 33.3 pg (28.0-36.0) 12/15/16 09:44 RDW 19.5 % (11.5-20.0) 12/15/16 09:44 Plt Count 276 Th/cmm (150-400) 12/15/16 09:44 MPV 7.5 fl 12/15/16 09:44 Neutrophils % 56.4 % (40.0-80.0) 12/15/16 09:44 Lymphocytes % 30.8 % (20.0-50.0) 12/15/16 09:44 Monocytes % 9.4 % (2.0-10.0) 12/15/16 09:44 Eosinophils % 2.6 % (0.0-5.0) 12/15/16 09:44 Basophils % 0.8 % (0.0-2.0) 12/15/16 09:44 Sodium 135 mEq/L (136-145) L 12/15/16 09:44 Potassium 3.7 mEq/L (3.5-5.1) 12/15/16 09:44 Chloride 101 mEq/L (98-107) 12/15/16 09:44 Carbon Dioxide 24.7 mEq/L (21.0-31.0) 12/15/16 09:44 Anion Gap 13.0 (7.0-16.0) 12/15/16 09:44 BUN 8 mg/dL (7-25) 12/15/16 09:44 Creatinine 0.7 mg/dL (0.6-1.2) 12/15/16 09:44 Est GFR ( Amer) > 60.0 ml/min (>90) 12/15/16 09:44 Est GFR (Non-Af Amer) > 60.0 ml/min 12/15/16 09:44 BUN/Creatinine Ratio 11.4 12/15/16 09:44 Glucose 124 mg/dL (70-105) H 12/15/16 09:44 Calcium 9.2 mg/dL (8.6-10.3) 12/15/16 09:44 Total Bilirubin 0.4 mg/dL (0.3-1.0) 12/13/16 08:30 AST 34 U/L (13-39) 12/13/16 08:30 ALT 23 U/L (7-52) 12/13/16 08:30 Alkaline Phosphatase 79 U/L (34-104) 12/13/16 08:30 Total Protein 8.5 gm/dL (6.0-8.3) H 12/13/16 08:30 Albumin 3.4 gm/dL (3.7-5.3) L 12/13/16 08:30 Globulin 5.1 gm/dL 12/13/16 08:30 Albumin/Globulin Ratio 0.7 (1.0-1.8) L 12/13/16 08:30 Urine Source [place] 12/13/16 10:00 Urine Color YELLOW 12/13/16 10:00 Urine Clarity SL. CLOUDY (CLEAR) 12/13/16 10:00 Urine pH 6.0 12/13/16 10:00 Ur Specific [place] (1.005-1.030) 12/13/16 10:00 Urine Protein 30 mg/dL (NEGATIVE) H 12/13/16 10:00 Urine Glucose (UA) NEGATIVE mg/dL (NEGATIVE) 12/13/16 10:00 Urine Ketones NEGATIVE mg/dL (NEGATIVE) 12/13/16 10:00 Urine Blood NEGATIVE (NEGATIVE) 12/13/16 10:00 Urine Nitrate NEGATIVE (NEGATIVE) 12/13/16 10:00 Urine Bilirubin NEGATIVE (NEGATIVE) 12/13/16 10:00 Urine Urobilinogen 0.2 E.U./dL (0.2 - 1.0) 12/13/16 10:00 Ur Leukocyte Esterase SMALL (NEGATIVE) H 12/13/16 10:00 Urine RBC 0-2 /hpf (0-5) 12/13/16 10:00 Urine WBC 10-25 /hpf (0-5) H 12/13/16 10:00 Ur Epithelial Cells MODERATE /lpf (FEW) 12/13/16 10:00 Urine Bacteria FEW /hpf (NONE SEEN) 12/13/16 10:00 Urine Test NEGATIVE 12/13/16 10:00 Vancomycin Trough 12.9 ug/mL (10-20) 12/14/16 05:30 - Physical Exam Vitals and I&O: Vital Signs Temp 99.1 F 12/15/16 16:25 Pulse 91 12/15/16 16:25 Resp 17 12/15/16 16:25 BP 121/77 12/15/16 16:25 Pulse Ox 97 12/15/16 16:25 Intake & Output 12/14/16 12/15/16 12/15/16 18:59 06:59 18:59 Intake Total 1120 Balance 1120 Intake: Intake, IV Amount 500 Vancomycin HCl 1.5 gm In 500 Sodium Chloride 0.9% 250 ml @ 125 mls/hr IV Q8H [facility] Rx#:[id number] Oral 620 Other: # Voids 2 # Bowel Movements 0 Active Medications: Current Medications Acetaminophen (Tylenol) 650 mg PO Q4HR PRN PRN Reason: Pain or Fever >101 Stop: 02/11/17 12:46 Vancomycin HCl 1.5 gm/ Sodium (Chloride) 250 mls @ 125 mls/hr IV Q8HR@0000,0800 ,1600 [facility] Stop: 02/12/17 15:59 Miscellaneous (Vancomycin Iv Per Pharmacy) 1 ea MC PRN [facility] Stop: 02/11/17 12:44 Morphine Sulfate (Morphine) 2 mg IVP Q4HR PRN PRN Reason: Pain (Severe) Stop: 02/11/17 17:28 Last Admin: 12/15/16 04:04 Dose: 2 mg Ondansetron HCl (Zofran Odt) 4 mg PO Q6H PRN PRN Reason: Nausea / Vomiting Stop: 02/11/17 12:34 Wound Care/Dressing Products (Therahoney) 1 appl TP DAILY [facility] Stop: 02/11/17 18:14 Last Admin: 12/15/16 09:31 Dose: 1 appl Cardiovascular: Normal S1, Normal S2 Lungs: Clear to auscultation Abdomen: Soft Extremities: Edema Assessment/Plan - Problem List Patient Problems: All Active Problems LEG SWELLING (Acute ~12/13/16) - Assessment Assessment: Bilateral leg cellulitis Obesity - Plan Plan: Continue current treatment Compression stocking advised pain control
[2016-12-16] MEDS: Morphine Sulfate 2 mg/mL 1mL Syr IVP PRN ×2 (09:04→20:23)
[2016-12-16] MEDS: Therahoney Gel 42.5gm Tube TP SCH (09:08)
--- NOTE | 2016-12-16 20:27 | General Progress Note ---
Subjective - Review of Systems Service Date: 12/16/16 Subjective: patient doing better afebrile no new concern Objective - Results Result Diagrams: 12/15/16 09:44 12/15/16 09:44 Recent Labs: Laboratory Last Values WBC 5.9 Th/cmm (4.8-10.8) 12/15/16 09:44 RBC 3.42 Mil/cmm (3.80-5.10) L 12/15/16 09:44 Hgb 9.9 gm/dL (11.7-15.5) L 12/15/16 09:44 Hct 29.6 % (35.0-45.0) L 12/15/16 09:44 MCV 86.5 fl (81-100) 12/15/16 09:44 MCH 28.8 pg (27.0-31.0) 12/15/16 09:44 MCHC Differential 33.3 pg (28.0-36.0) 12/15/16 09:44 RDW 19.5 % (11.5-20.0) 12/15/16 09:44 Plt Count 276 Th/cmm (150-400) 12/15/16 09:44 MPV 7.5 fl 12/15/16 09:44 Neutrophils % 56.4 % (40.0-80.0) 12/15/16 09:44 Lymphocytes % 30.8 % (20.0-50.0) 12/15/16 09:44 Monocytes % 9.4 % (2.0-10.0) 12/15/16 09:44 Eosinophils % 2.6 % (0.0-5.0) 12/15/16 09:44 Basophils % 0.8 % (0.0-2.0) 12/15/16 09:44 Sodium 135 mEq/L (136-145) L 12/15/16 09:44 Potassium 3.7 mEq/L (3.5-5.1) 12/15/16 09:44 Chloride 101 mEq/L (98-107) 12/15/16 09:44 Carbon Dioxide 24.7 mEq/L (21.0-31.0) 12/15/16 09:44 Anion Gap 13.0 (7.0-16.0) 12/15/16 09:44 BUN 8 mg/dL (7-25) 12/15/16 09:44 Creatinine 0.7 mg/dL (0.6-1.2) 12/15/16 09:44 Est GFR ( Amer) > 60.0 ml/min (>90) 12/15/16 09:44 Est GFR (Non-Af Amer) > 60.0 ml/min 12/15/16 09:44 BUN/Creatinine Ratio 11.4 12/15/16 09:44 Glucose 124 mg/dL (70-105) H 12/15/16 09:44 Calcium 9.2 mg/dL (8.6-10.3) 12/15/16 09:44 Total Bilirubin 0.4 mg/dL (0.3-1.0) 12/13/16 08:30 AST 34 U/L (13-39) 12/13/16 08:30 ALT 23 U/L (7-52) 12/13/16 08:30 Alkaline Phosphatase 79 U/L (34-104) 12/13/16 08:30 Total Protein 8.5 gm/dL (6.0-8.3) H 12/13/16 08:30 Albumin 3.4 gm/dL (3.7-5.3) L 12/13/16 08:30 Globulin 5.1 gm/dL 12/13/16 08:30 Albumin/Globulin Ratio 0.7 (1.0-1.8) L 12/13/16 08:30 Urine Source MIDSTREAM 12/13/16 10:00 Urine Color YELLOW 12/13/16 10:00 Urine Clarity SL. CLOUDY (CLEAR) 12/13/16 10:00 Urine pH 6.0 12/13/16 10:00 Ur Specific [place] (1.005-1.030) 12/13/16 10:00 Urine Protein 30 mg/dL (NEGATIVE) H 12/13/16 10:00 Urine Glucose (UA) NEGATIVE mg/dL (NEGATIVE) 12/13/16 10:00 Urine Ketones NEGATIVE mg/dL (NEGATIVE) 12/13/16 10:00 Urine Blood NEGATIVE (NEGATIVE) 12/13/16 10:00 Urine Nitrate NEGATIVE (NEGATIVE) 12/13/16 10:00 Urine Bilirubin NEGATIVE (NEGATIVE) 12/13/16 10:00 Urine Urobilinogen 0.2 E.U./dL (0.2 - 1.0) 12/13/16 10:00 Ur Leukocyte Esterase SMALL (NEGATIVE) H 12/13/16 10:00 Urine RBC 0-2 /hpf (0-5) 12/13/16 10:00 Urine WBC 10-25 /hpf (0-5) H 12/13/16 10:00 Ur Epithelial Cells MODERATE /lpf (FEW) 12/13/16 10:00 Urine Bacteria FEW /hpf (NONE SEEN) 12/13/16 10:00 Urine Test NEGATIVE 12/13/16 10:00 Vancomycin Trough 12.9 ug/mL (10-20) 12/14/16 05:30 - Physical Exam Vitals and I&O: Vital Signs Temp 97.8 F 12/16/16 16:00 Pulse 88 12/16/16 16:00 Resp 20 12/16/16 16:00 BP 136/89 12/16/16 16:00 Pulse Ox 97 12/16/16 16:00 Intake & Output 12/16/16 12/16/16 12/17/16 06:59 18:59 06:59 Intake Total 300 250 Balance 300 250 Intake: Intake, IV Amount 250 Vancomycin HCl 1.5 gm In 250 Sodium Chloride 0.9% 250 ml @ 125 mls/hr IV Q8HR@ 0000,0800,1600 [facility] Rx#: [id number] Oral 300 Other: # Voids 3 Active Medications: Current Medications Acetaminophen (Tylenol) 650 mg PO Q4HR PRN PRN Reason: Pain or Fever >101 Stop: 02/11/17 12:46 Last Admin: 12/16/16 07:37 Dose: 650 mg Vancomycin HCl 1.5 gm/ Sodium (Chloride) 250 mls @ 125 mls/hr IV Q8HR@0000,0800 ,1600 [facility] Stop: 02/12/17 15:59 Last Admin: 12/16/16 16:18 Dose: 125 mls/hr Miscellaneous (Vancomycin Iv Per Pharmacy) 1 ea [facility] PRN [facility] Stop: 02/11/17 12:44 Morphine Sulfate (Morphine) 2 mg IVP Q4HR PRN PRN Reason: Pain (Severe) Stop: 02/11/17 17:28 Last Admin: 12/16/16 20:23 Dose: 2 mg Ondansetron HCl (Zofran Odt) 4 mg PO Q6H PRN PRN Reason: Nausea / Vomiting Stop: 02/11/17 12:34 Wound Care/Dressing Products (Therahoney) 1 appl TP DAILY [facility] Stop: 02/11/17 18:14 Last Admin: 12/16/16 09:08 Dose: 1 appl Cardiovascular: Regular rate Lungs: Clear to auscultation Extremities: Edema Assessment/Plan - Problem List Patient Problems: All Active Problems LEG SWELLING (Acute ~12/13/16) - Assessment Assessment: Bilateral leg cellulitis Obesity - Plan Plan: Continue current treatment Compression stocking advised pain control DC planing for home tomorrow if ID agrees
--- NOTE | 2016-12-16 23:18 | Infectious Disease Prog Note ---
Infectious Disease Subjective - Review of Systems Service Date: 12/16/16 Subjective: No new change, no fever. Infectious Disease Objective - Results Result Diagrams: 12/15/16 09:44 12/15/16 09:44 Recent Labs: Laboratory Last Values WBC 5.9 Th/cmm (4.8-10.8) 12/15/16 09:44 RBC 3.42 Mil/cmm (3.80-5.10) L 12/15/16 09:44 Hgb 9.9 gm/dL (11.7-15.5) L 12/15/16 09:44 Hct 29.6 % (35.0-45.0) L 12/15/16 09:44 MCV 86.5 fl (81-100) 12/15/16 09:44 MCH 28.8 pg (27.0-31.0) 12/15/16 09:44 MCHC Differential 33.3 pg (28.0-36.0) 12/15/16 09:44 RDW 19.5 % (11.5-20.0) 12/15/16 09:44 Plt Count 276 Th/cmm (150-400) 12/15/16 09:44 MPV 7.5 fl 12/15/16 09:44 Neutrophils % 56.4 % (40.0-80.0) 12/15/16 09:44 Lymphocytes % 30.8 % (20.0-50.0) 12/15/16 09:44 Monocytes % 9.4 % (2.0-10.0) 12/15/16 09:44 Eosinophils % 2.6 % (0.0-5.0) 12/15/16 09:44 Basophils % 0.8 % (0.0-2.0) 12/15/16 09:44 Sodium 135 mEq/L (136-145) L 12/15/16 09:44 Potassium 3.7 mEq/L (3.5-5.1) 12/15/16 09:44 Chloride 101 mEq/L (98-107) 12/15/16 09:44 Carbon Dioxide 24.7 mEq/L (21.0-31.0) 12/15/16 09:44 Anion Gap 13.0 (7.0-16.0) 12/15/16 09:44 BUN 8 mg/dL (7-25) 12/15/16 09:44 Creatinine 0.7 mg/dL (0.6-1.2) 12/15/16 09:44 Est GFR ( Amer) > 60.0 ml/min (>90) 12/15/16 09:44 Est GFR (Non-Af Amer) > 60.0 ml/min 12/15/16 09:44 BUN/Creatinine Ratio 11.4 12/15/16 09:44 Glucose 124 mg/dL (70-105) H 12/15/16 09:44 Calcium 9.2 mg/dL (8.6-10.3) 12/15/16 09:44 Total Bilirubin 0.4 mg/dL (0.3-1.0) 12/13/16 08:30 AST 34 U/L (13-39) 12/13/16 08:30 ALT 23 U/L (7-52) 12/13/16 08:30 Alkaline Phosphatase 79 U/L (34-104) 12/13/16 08:30 Total Protein 8.5 gm/dL (6.0-8.3) H 12/13/16 08:30 Albumin 3.4 gm/dL (3.7-5.3) L 12/13/16 08:30 Globulin 5.1 gm/dL 12/13/16 08:30 Albumin/Globulin Ratio 0.7 (1.0-1.8) L 12/13/16 08:30 Urine Source MIDSTREAM 12/13/16 10:00 Urine Color YELLOW 12/13/16 10:00 Urine Clarity SL. CLOUDY (CLEAR) 12/13/16 10:00 Urine pH 6.0 12/13/16 10:00 Ur Specific [place] (1.005-1.030) 12/13/16 10:00 Urine Protein 30 mg/dL (NEGATIVE) H 12/13/16 10:00 Urine Glucose (UA) NEGATIVE mg/dL (NEGATIVE) 12/13/16 10:00 Urine Ketones NEGATIVE mg/dL (NEGATIVE) 12/13/16 10:00 Urine Blood NEGATIVE (NEGATIVE) 12/13/16 10:00 Urine Nitrate NEGATIVE (NEGATIVE) 12/13/16 10:00 Urine Bilirubin NEGATIVE (NEGATIVE) 12/13/16 10:00 Urine Urobilinogen 0.2 E.U./dL (0.2 - 1.0) 12/13/16 10:00 Ur Leukocyte Esterase SMALL (NEGATIVE) H 12/13/16 10:00 Urine RBC 0-2 /hpf (0-5) 12/13/16 10:00 Urine WBC 10-25 /hpf (0-5) H 12/13/16 10:00 Ur Epithelial Cells MODERATE /lpf (FEW) 12/13/16 10:00 Urine Bacteria FEW /hpf (NONE SEEN) 12/13/16 10:00 Urine Test NEGATIVE 12/13/16 10:00 Vancomycin Trough 12.9 ug/mL (10-20) 12/14/16 05:30 - Physical Exam Vitals and I&O: Vital Signs Temp 97.8 F 12/16/16 16:00 Pulse 88 12/16/16 16:00 Resp 20 12/16/16 16:00 BP 136/89 12/16/16 16:00 Pulse Ox 97 12/16/16 16:00 Intake & Output 12/16/16 12/16/16 12/17/16 06:59 18:59 06:59 Intake Total 300 250 Balance 300 250 Intake: Intake, IV Amount 250 Vancomycin HCl 1.5 gm In 250 Sodium Chloride 0.9% 250 ml @ 125 mls/hr IV Q8HR@ 0000,0800,1600 [facility] Rx#: [id number] Oral 300 Other: # Voids 3 Active Medications: Current Medications Acetaminophen (Tylenol) 650 mg PO Q4HR PRN PRN Reason: Pain or Fever >101 Stop: 02/11/17 12:46 Last Admin: 12/16/16 07:37 Dose: 650 mg Vancomycin HCl 1.5 gm/ Sodium (Chloride) 250 mls @ 125 mls/hr IV Q8HR@0000,0800 ,1600 [facility] Stop: 02/12/17 15:59 Last Admin: 12/16/16 16:18 Dose: 125 mls/hr Miscellaneous (Vancomycin Iv Per Pharmacy) 1 ea [facility] PRN [facility] Stop: 02/11/17 12:44 Morphine Sulfate (Morphine) 2 mg IVP Q4HR PRN PRN Reason: Pain (Severe) Stop: 02/11/17 17:28 Last Admin: 12/16/16 20:23 Dose: 2 mg Ondansetron HCl (Zofran Odt) 4 mg PO Q6H PRN PRN Reason: Nausea / Vomiting Stop: 02/11/17 12:34 Wound Care/Dressing Products (Therahoney) 1 appl TP DAILY [facility] Stop: 02/11/17 18:14 Last Admin: 12/16/16 09:08 Dose: 1 appl General: no acute distress, well developed, well nourished HEENT: atraumatic, normocephalic, PERRLA, EOMI, moist mucous membrane Neck: supple Cardiovascular: S1S2, regular Lungs: clear to auscultation bilaterally, clear to percussion Abdomen: soft, no tender, no distended, no mass Extremities: other (swollen legs with wound in left foot.), no cyanosis, no clubbing, no edema Infectious Disease Assmt/Plan - Problem List Patient Problems: All Active Problems LEG SWELLING (Acute ~12/13/16) - Assessment Assessment: Cellulitis of the legs. right leg wound. Lymphedema. PAD. - Plan Plan: Continue vanco IV. May change antibiotics to cipro and doxy po on discharge. wound care. DC plan.
[2016-12-17 07:38] LABS: % BASOPHILS 0.6 % (0.0-2.0); % EOSINOPHILS 3.6 % (0.0-5.0); % LYMPHOCYTES 29.5 % (20.0-50.0); % MONOCYTES 12.4 % (2.0-10.0); % NEUTROPHILS 53.9 % (40.0-80.0); HEMATOCRIT 30.3 % (35.0-45.0); HEMOGLOBIN 10.2 gm/dL (11.7-15.5); MEAN CELL VOLUME 86.9 fl (81-100); MEAN CORPUSCULAR HEMOGLOBIN 29.1 pg (27.0-31.0); MEAN CORPUSCULAR HGB CONC 33.5 pg (28.0-36.0); MEAN PLATELET VOLUME 7.4 fl; NEUTROPHILE ABSOLUTE 2.7 Th/cmm (1.8-8.0); PLATELET COUNT 250 Th/cmm (150-400); RED BLOOD COUNT 3.49 Mil/cmm (3.80-5.10); RED CELL DISTRIBUTION WIDTH 19.7 % (11.5-20.0); WHITE BLOOD COUNT 4.9 Th/cmm (4.8-10.8)
[2016-12-17 08:04] LABS: ANION GAP 7.7 (7.0-16.0); BUN - UREA NITROGEN 7 mg/dL (7-25); BUN/CREATININE RATIO 11.7; CALCIUM SERUM 9.8 mg/dL (8.6-10.3); CARBON DIOXIDE 28.1 mEq/L (21.0-31.0); CHLORIDE 103 mEq/L (98-107); CREATININE - SERUM 0.6 mg/dL (0.6-1.2); GLUCOSE 98 mg/dL (70-105); POTASSIUM SERUM 3.8 mEq/L (3.5-5.1); SODIUM SERUM 135 mEq/L (136-145)
[2016-12-17] MEDS: Vancomycin HCl 1.5 GM in Sodium Chloride 0.9% 500 ML IV SCH ×2 (10:07→16:18)
--- NOTE | 2016-12-17 12:34 | General Progress Note ---
Subjective - Review of Systems Service Date: 12/17/16 Subjective: patient doing better afebrile no new concern Objective - Results Result Diagrams: 12/17/16 07:00 12/17/16 07:00 Recent Labs: Laboratory Last Values WBC 4.9 Th/cmm (4.8-10.8) 12/17/16 07:00 RBC 3.49 Mil/cmm (3.80-5.10) L 12/17/16 07:00 Hgb 10.2 gm/dL (11.7-15.5) L 12/17/16 07:00 Hct 30.3 % (35.0-45.0) L 12/17/16 07:00 MCV 86.9 fl (81-100) 12/17/16 07:00 MCH 29.1 pg (27.0-31.0) 12/17/16 07:00 MCHC Differential 33.5 pg (28.0-36.0) 12/17/16 07:00 RDW 19.7 % (11.5-20.0) 12/17/16 07:00 Plt Count 250 Th/cmm (150-400) 12/17/16 07:00 MPV 7.4 fl 12/17/16 07:00 Neutrophils % 53.9 % (40.0-80.0) 12/17/16 07:00 Lymphocytes % 29.5 % (20.0-50.0) 12/17/16 07:00 Monocytes % 12.4 % (2.0-10.0) H 12/17/16 07:00 Eosinophils % 3.6 % (0.0-5.0) 12/17/16 07:00 Basophils % 0.6 % (0.0-2.0) 12/17/16 07:00 Sodium 135 mEq/L (136-145) L 12/17/16 07:00 Potassium 3.8 mEq/L (3.5-5.1) 12/17/16 07:00 Chloride 103 mEq/L (98-107) 12/17/16 07:00 Carbon Dioxide 28.1 mEq/L (21.0-31.0) 12/17/16 07:00 Anion Gap 7.7 (7.0-16.0) 12/17/16 07:00 BUN 7 mg/dL (7-25) 12/17/16 07:00 Creatinine 0.6 mg/dL (0.6-1.2) 12/17/16 07:00 Est GFR ( Amer) > 60.0 ml/min (>90) 12/17/16 07:00 Est GFR (Non-Af Amer) > 60.0 ml/min 12/17/16 07:00 BUN/Creatinine Ratio 11.7 12/17/16 07:00 Glucose 98 mg/dL (70-105) 12/17/16 07:00 Calcium 9.8 mg/dL (8.6-10.3) 12/17/16 07:00 Total Bilirubin 0.4 mg/dL (0.3-1.0) 12/13/16 08:30 AST 34 U/L (13-39) 12/13/16 08:30 ALT 23 U/L (7-52) 12/13/16 08:30 Alkaline Phosphatase 79 U/L (34-104) 12/13/16 08:30 Total Protein 8.5 gm/dL (6.0-8.3) H 12/13/16 08:30 Albumin 3.4 gm/dL (3.7-5.3) L 12/13/16 08:30 Globulin 5.1 gm/dL 12/13/16 08:30 Albumin/Globulin Ratio 0.7 (1.0-1.8) L 12/13/16 08:30 Urine Source MIDSTREAM 12/13/16 10:00 Urine Color YELLOW 12/13/16 10:00 Urine Clarity SL. CLOUDY (CLEAR) 12/13/16 10:00 Urine pH 6.0 12/13/16 10:00 Ur Specific [place] (1.005-1.030) 12/13/16 10:00 Urine Protein 30 mg/dL (NEGATIVE) H 12/13/16 10:00 Urine Glucose (UA) NEGATIVE mg/dL (NEGATIVE) 12/13/16 10:00 Urine Ketones NEGATIVE mg/dL (NEGATIVE) 12/13/16 10:00 Urine Blood NEGATIVE (NEGATIVE) 12/13/16 10:00 Urine Nitrate NEGATIVE (NEGATIVE) 12/13/16 10:00 Urine Bilirubin NEGATIVE (NEGATIVE) 12/13/16 10:00 Urine Urobilinogen 0.2 E.U./dL (0.2 - 1.0) 12/13/16 10:00 Ur Leukocyte Esterase SMALL (NEGATIVE) H 12/13/16 10:00 Urine RBC 0-2 /hpf (0-5) 12/13/16 10:00 Urine WBC 10-25 /hpf (0-5) H 12/13/16 10:00 Ur Epithelial Cells MODERATE /lpf (FEW) 12/13/16 10:00 Urine Bacteria FEW /hpf (NONE SEEN) 12/13/16 10:00 Urine Test NEGATIVE 12/13/16 10:00 Vancomycin Trough 12.9 ug/mL (10-20) 12/14/16 05:30 - Physical Exam Vitals and I&O: Vital Signs Temp 97.0 F 12/17/16 08:01 Pulse 87 12/17/16 08:01 Resp 20 12/17/16 08:01 BP 138/91 12/17/16 08:01 Pulse Ox 96 12/17/16 08:01 Intake & Output 12/16/16 12/17/16 12/17/16 18:59 06:59 18:59 Intake Total 500 Balance 500 Intake: Intake, IV Amount 500 Vancomycin HCl 1.5 gm In 500 Sodium Chloride 0.9% 250 ml @ 125 mls/hr IV Q8HR@ 0000,0800,1600 [facility] Rx#: [id number] Active Medications: Current Medications Acetaminophen (Tylenol) 650 mg PO Q4HR PRN PRN Reason: Pain or Fever >101 Stop: 02/11/17 12:46 Last Admin: 12/16/16 07:37 Dose: 650 mg Ciprofloxacin (Cipro) 500 mg PO BID [facility] Stop: 02/15/17 08:59 Last Admin: 12/17/16 08:32 Dose: 500 mg Vancomycin HCl 1.5 gm/ Sodium (Chloride) 500 mls @ 250 mls/hr IV Q8H [facility] Stop: 02/15/17 08:59 Last Admin: 12/17/16 10:07 Dose: 250 mls/hr Miscellaneous (Vancomycin Iv Per Pharmacy) 1 ea MC PRN [facility] Stop: 02/11/17 12:44 Morphine Sulfate (Morphine) 2 mg IVP Q4HR PRN PRN Reason: Pain (Severe) Stop: 02/11/17 17:28 Last Admin: 12/16/16 20:23 Dose: 2 mg Ondansetron HCl (Zofran Odt) 4 mg PO Q6H PRN PRN Reason: Nausea / Vomiting Stop: 02/11/17 12:34 Wound Care/Dressing Products (Therahoney) 1 appl TP DAILY [facility] Stop: 02/11/17 18:14 Last Admin: 12/16/16 09:08 Dose: 1 appl Cardiovascular: Regular rate Lungs: Clear to auscultation Extremities: Edema Assessment/Plan - Problem List Patient Problems: All Active Problems LEG SWELLING (Acute ~12/13/16) - Assessment Assessment: Bilateral leg cellulitis Obesity - Plan Plan: DC home today with oral antibiotics Patient was highly advised for outpt Primary MD follow up Case discussed with ID who agreed for home discharge
[2016-12-17] MEDS: Morphine Sulfate 2 mg/mL 1mL Syr IVP PRN ×2 (16:11→22:48)
--- NOTE | 2016-12-17 21:09 | Infectious Disease Prog Note ---
Infectious Disease Subjective - Review of Systems Service Date: 12/17/16 Subjective: No new change, no fever. Infectious Disease Objective - Results Result Diagrams: 12/17/16 07:00 12/17/16 07:00 Recent Labs: Laboratory Last Values WBC 4.9 Th/cmm (4.8-10.8) 12/17/16 07:00 RBC 3.49 Mil/cmm (3.80-5.10) L 12/17/16 07:00 Hgb 10.2 gm/dL (11.7-15.5) L 12/17/16 07:00 Hct 30.3 % (35.0-45.0) L 12/17/16 07:00 MCV 86.9 fl (81-100) 12/17/16 07:00 MCH 29.1 pg (27.0-31.0) 12/17/16 07:00 MCHC Differential 33.5 pg (28.0-36.0) 12/17/16 07:00 RDW 19.7 % (11.5-20.0) 12/17/16 07:00 Plt Count 250 Th/cmm (150-400) 12/17/16 07:00 MPV 7.4 fl 12/17/16 07:00 Neutrophils % 53.9 % (40.0-80.0) 12/17/16 07:00 Lymphocytes % 29.5 % (20.0-50.0) 12/17/16 07:00 Monocytes % 12.4 % (2.0-10.0) H 12/17/16 07:00 Eosinophils % 3.6 % (0.0-5.0) 12/17/16 07:00 Basophils % 0.6 % (0.0-2.0) 12/17/16 07:00 Sodium 135 mEq/L (136-145) L 12/17/16 07:00 Potassium 3.8 mEq/L (3.5-5.1) 12/17/16 07:00 Chloride 103 mEq/L (98-107) 12/17/16 07:00 Carbon Dioxide 28.1 mEq/L (21.0-31.0) 12/17/16 07:00 Anion Gap 7.7 (7.0-16.0) 12/17/16 07:00 BUN 7 mg/dL (7-25) 12/17/16 07:00 Creatinine 0.6 mg/dL (0.6-1.2) 12/17/16 07:00 Est GFR ( Amer) > 60.0 ml/min (>90) 12/17/16 07:00 Est GFR (Non-Af Amer) > 60.0 ml/min 12/17/16 07:00 BUN/Creatinine Ratio 11.7 12/17/16 07:00 Glucose 98 mg/dL (70-105) 12/17/16 07:00 Calcium 9.8 mg/dL (8.6-10.3) 12/17/16 07:00 Total Bilirubin 0.4 mg/dL (0.3-1.0) 12/13/16 08:30 AST 34 U/L (13-39) 12/13/16 08:30 ALT 23 U/L (7-52) 12/13/16 08:30 Alkaline Phosphatase 79 U/L (34-104) 12/13/16 08:30 Total Protein 8.5 gm/dL (6.0-8.3) H 12/13/16 08:30 Albumin 3.4 gm/dL (3.7-5.3) L 12/13/16 08:30 Globulin 5.1 gm/dL 12/13/16 08:30 Albumin/Globulin Ratio 0.7 (1.0-1.8) L 12/13/16 08:30 Urine Source MIDSTREAM 12/13/16 10:00 Urine Color YELLOW 12/13/16 10:00 Urine Clarity SL. CLOUDY (CLEAR) 12/13/16 10:00 Urine pH 6.0 12/13/16 10:00 Ur Specific [place] (1.005-1.030) 12/13/16 10:00 Urine Protein 30 mg/dL (NEGATIVE) H 12/13/16 10:00 Urine Glucose (UA) NEGATIVE mg/dL (NEGATIVE) 12/13/16 10:00 Urine Ketones NEGATIVE mg/dL (NEGATIVE) 12/13/16 10:00 Urine Blood NEGATIVE (NEGATIVE) 12/13/16 10:00 Urine Nitrate NEGATIVE (NEGATIVE) 12/13/16 10:00 Urine Bilirubin NEGATIVE (NEGATIVE) 12/13/16 10:00 Urine Urobilinogen 0.2 E.U./dL (0.2 - 1.0) 12/13/16 10:00 Ur Leukocyte Esterase SMALL (NEGATIVE) H 12/13/16 10:00 Urine RBC 0-2 /hpf (0-5) 12/13/16 10:00 Urine WBC 10-25 /hpf (0-5) H 12/13/16 10:00 Ur Epithelial Cells MODERATE /lpf (FEW) 12/13/16 10:00 Urine Bacteria FEW /hpf (NONE SEEN) 12/13/16 10:00 Urine Test NEGATIVE 12/13/16 10:00 Vancomycin Trough 12.9 ug/mL (10-20) 12/14/16 05:30 - Physical Exam Vitals and I&O: Vital Signs Temp 97.6 F 12/17/16 16:00 Pulse 76 12/17/16 16:00 Resp 20 12/17/16 16:00 BP 125/88 12/17/16 16:00 Pulse Ox 95 12/17/16 16:00 Intake & Output 12/17/16 12/17/16 12/18/16 06:59 18:59 06:59 Intake Total 500 Balance 500 Intake: Intake, IV Amount 500 Vancomycin HCl 1.5 gm In 500 Sodium Chloride 0.9% 500 ml @ 250 mls/hr IV Q8H [facility] Rx#:[id number] Active Medications: Current Medications Acetaminophen (Tylenol) 650 mg PO Q4HR PRN PRN Reason: Pain or Fever >101 Stop: 02/11/17 12:46 Last Admin: 12/16/16 07:37 Dose: 650 mg Ciprofloxacin (Cipro) 500 mg PO BID [facility] Stop: 02/15/17 08:59 Last Admin: 12/17/16 08:32 Dose: 500 mg Vancomycin HCl 1.5 gm/ Sodium (Chloride) 500 mls @ 250 mls/hr IV Q8H [facility] Stop: 02/15/17 08:59 Last Admin: 12/17/16 16:18 Dose: 250 mls/hr Miscellaneous (Vancomycin Iv Per Pharmacy) 1 ea MC PRN [facility] Stop: 02/11/17 12:44 Morphine Sulfate (Morphine) 2 mg IVP Q4HR PRN PRN Reason: Pain (Severe) Stop: 02/11/17 17:28 Last Admin: 12/17/16 16:11 Dose: 2 mg Ondansetron HCl (Zofran Odt) 4 mg PO Q6H PRN PRN Reason: Nausea / Vomiting Stop: 02/11/17 12:34 Wound Care/Dressing Products (Therahoney) 1 appl TP DAILY [facility] Stop: 02/11/17 18:14 Last Admin: 12/16/16 09:08 Dose: 1 appl General: no acute distress HEENT: atraumatic, normocephalic, PERRLA, EOMI Neck: supple Cardiovascular: S1S2, regular, pacemaker Lungs: clear to auscultation bilaterally, clear to percussion Abdomen: soft, no tender, no distended Extremities: no cyanosis, no clubbing, no edema Neurological: awake, alert Skin: intact Infectious Disease Assmt/Plan - Problem List Patient Problems: All Active Problems LEG SWELLING (Acute ~12/13/16) - Assessment Assessment: Cellulitis of the legs. right leg wound. Lymphedema. PAD. - Plan Plan: Continue vanco IV. May change antibiotics to cipro and doxy po on discharge. wound care. DC plan.
[2016-12-18] MEDS: Vancomycin HCl 1.5 GM in Sodium Chloride 0.9% 500 ML IV SCH ×2 (00:18→10:29)
[2016-12-18] MEDS: Morphine Sulfate 2 mg/mL 1mL Syr IVP PRN ×2 (06:37→10:09)
--- NOTE | 2017-02-21 01:44 | Discharge Summary ---
DATE OF DISCHARGE: 12/18/2016 FINAL DIAGNOSES: 1. Bilateral lower extremity cellulitis. 2. Borderline diabetes. 3. Morbid obesity. 4. Peripheral arterial disease. HOSPITAL COURSE: This is a 36-year-old female admitted for evaluation of bilateral lower extremity cellulitis and started on broad-spectrum IV antibiotics. ID was consulted. Daily wound care was given. The patient was given diabetic diet, and acute pain control was given. After clinically approving, ID cleared the patient for discharge with oral antibiotics to be finished at home. Also, home health was consulted for lower extremity wound care. The patient was also given daily wound care while she was in the hospital. DISCHARGE CONDITION: Stable. DISCHARGE MEDICATIONS: Please see medication reconciliation. DISCHARGE INSTRUCTIONS: Follow up with primary MD as an outpatient. The patient was advised to finish antibiotics discussed with the patient. JOB# [id number]
== END 2016-12-18 14:30 | disposition home or self-care (01) | DRG 383 ==
LOC: ER 07:35 → MSI 10:01
PROVIDERS: ADMIT Family Medicine; ATTEND Family Medicine
PROC: 02HV33Z Insertion of Infusion Device into Superior Vena Cava, Percutaneous Approach (ICD-10-PCS; principal; 2016-12-14)
DX: L03.116 Cellulitis of left lower limb (principal); E11.51 Type 2 diabetes mellitus with diabetic peripheral angiopathy without gangrene; E66.01 Morbid (severe) obesity due to excess calories; L03.115 Cellulitis of right lower limb; F17.210 Nicotine dependence, cigarettes, uncomplicated; I89.0 Lymphedema, not elsewhere classified; L02.416 Cutaneous abscess of left lower limb; Z68.35 Body mass index [BMI] 35.0-35.9, adult
CPT/HCPCS: 36415-UA; 71010-TC; 73590-TC-LT; 80048-TC; 80053-TC; 80202-TC; 81001-TC; 81025-TC; 85025-TC; 87070-90; 87086-90; 90732; 93925-TC; 93970-TC-50; C1751; J2270; J3370; J7040; Z7610